=== PATIENT | female | born 1965 | race Caucasian/White ===

== ENCOUNTER 2017-04-30 21:35 | Inpatient (IN) | payer BC ==
[~2017-04-30] VITALS: Ht 162.6 cm; Wt 83.9 kg
[~2017-04-30 21:35] MED LIST: CENTRUM SILVER1 EAC4 PO; COMBIVENT RESPIM4 GM IH; EPIPEN ADU0.3 MG/0.3 IM; FLEXERIL10 MG PO; LITHIUM CARBON450 MG PO; LORCET 5-325 M1 EACH PO; NEURONTIN300 MG PO; PROBIOTIC DIGE1 EACH PO; PROVENTIL,2.5 MG/3 M IH; SYNTHROID50 MCG PO; ZYRTEC10 M2 PO
[2017-05-01 06:08] VITALS: BP 175/85
[2017-05-01 07:24] LABS: METH RESISTANT S AUREUS PCR NEGATIVE (NEGATIVE)
[2017-05-01 07:25] LABS: PROBE CHECK PASS; SPECIMEN PROCESSING CONTROL PASS
[2017-05-01 12:53] LABS: INTERNAL CONTROL VALID? YES
[2017-05-01 16:00] VITALS: BP 140/69
[2017-05-01 16:20] VITALS: BP 134/75
[2017-05-01 16:21] VITALS: BP 140/69
[2017-05-01 19:42] VITALS: BP 161/70
[2017-05-01 23:47] VITALS: BP 133/63
[2017-05-02 03:40] VITALS: BP 127/58
[2017-05-02] MEDS ORDERED: ENDOCET 5-3251 EACH PO (07:34)
[2017-05-02] MEDS ORDERED: FLEXERIL10 MG PO (07:37)
[2017-05-02 07:59] VITALS: BP 145/66
[2017-05-02 11:45] VITALS: BP 170/75
== END 2017-05-02 13:00 | disposition home or self-care (01) | DRG 460 ==
LOC: ENRESERV 21:35 → 2SOUTH 05-01 05:27 → ENRESERV 05-01 14:44 → 2SOUTH 05-01 15:01 → 3EAST 05-01 15:55
PROVIDERS: Neurological Surgery
PROC: 0SG30A0 Fusion of Lumbosacral Joint with Interbody Fusion Device, Anterior Approach, Anterior Column, Open Approach (ICD-10-PCS; principal; 2017-05-01)
DX: M51.16 Intervertebral disc disorders with radiculopathy, lumbar region (principal); J44.9 Chronic obstructive pulmonary disease, unspecified; K59.00 Constipation, unspecified; M48.06 Spinal stenosis, lumbar region; M99.03 Segmental and somatic dysfunction of lumbar region; F31.9 Bipolar disorder, unspecified; G25.81 Restless legs syndrome; Z83.3 Family history of diabetes mellitus; Z82.49 Family history of ischemic heart disease and other diseases of the circulatory system; F17.200 Nicotine dependence, unspecified, uncomplicated; E78.5 Hyperlipidemia, unspecified; E03.9 Hypothyroidism, unspecified; M51.37 Other intervertebral disc degeneration, lumbosacral region
CPT/HCPCS: 72100; 76000; 84703; 86850; 86900; 86901; 87641; 93005; 99202; C1776; C1821; J0131; J0330; J1100; J1170; J2250; J2405; J2710; J3010; J3370; J3480